=== PATIENT | male | born 1950 | race Caucasian/White ===

== ENCOUNTER 2017-05-08 10:49 | Emergency (ER) | payer MEDICARE, OTHER ==
[2017-05-08 11:01] VITALS: O2SAT 99
--- NOTE | 2017-05-08 11:14 | ERPHSYRPT ---
- History of Present Illness Time Seen by Provider: 05/08/17 11:09 Source: patient, family Physician History: 67-year-old male came to the emergency room with complaining of nosebleed for last 24 hours. Patient is on battery-operated heart pump and is on transplant list for heart. Patient is on warfarin and his last INR on Tuesday was 2.57 which is the range. 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 When patient seen in ER. Patient has a paper plug on his left nostril and when it was pulled out. Bleeding was stopped. No active bleeding was noted in the emergency room, while examining. Timing/Duration: gradual onset Prearrival Treatment: nasal packing Associated Symptoms: denies symptoms - Review of Systems Constitutional: No Symptoms Ears, Nose, & Throat: Epistaxis (left nostril) Cardiac: No Symptoms - Past Medical History Pertinent Past Medical History: Yes Neurological History: No Pertinent History ENT History: No Pertinent History Cardiac History: Congenital Heart Disease, Coronary Artery Disease, Hypertension , Other Musculoskeletal History: Other Other Medical History: patient has a Lvad - Past Surgical History Past Surgical History: Yes Cardiac: CABG, Cardiac Catheterization, Cardiac Stent, Other Musculoskeletal: Orthopedic Surgery Other Surgical History: knee and joint surgery - Social History Drug Use: none - Nursing Vital Signs Nursing Vital Signs: Initial Vital Signs Temperature 98.6 F 05/08/17 10:50 O2 Sat by Pulse Oximetry 99 05/08/17 10:50 Pain Scale Pain Intensity 0 - Physical Exam General Appearance: no apparent distress Eye Exam: bilateral eye: normal inspection Nasal Exam: dried blood Throat Exam: normal Neck Exam: normal inspection Cardiovascular/Respiratory Exam: chest non-tender SpO2: 99 Oxygen Delivery: Room Air - Course Nursing assessment & vital signs reviewed: Yes - Progress Progress: improved Counseled pt/family regarding: diagnosis, need for follow-up - Departure Time of Disposition: 11:14 Departure Disposition: Home Clinical Impression: Anterior epistaxis Condition: Stable Critical Care Time: No Referrals: DANNI BENDER MD [Primary Care Provider] - Instructions: Nosebleed Additional Instructions: Please follow the instructions given to you. Please take your medication as prescribed if given. If symptoms recur or get worse, come back to the emergency room if you cannot reach your primary care physician, or call your primary care physician for an appointment. Again if your symptoms get worse, come back to the emergency room. Thanks for visiting emergency room, and let us take care of you.
== END 2017-05-08 11:35 | disposition home or self-care (01) ==
LOC: ED 10:49
DX: R04.0 Epistaxis (principal); Z79.01 Long term (current) use of anticoagulants; Z95.811 Presence of heart assist device
CPT/HCPCS: 99283

== ENCOUNTER 2017-05-26 09:41 | Emergency (ER) | payer MEDICARE, OTHER ==
[2017-05-26] MEDS ORDERED: ARZOL Silver Nitrate Applicator TP ONE ×3 (09:50→10:25)
[2017-05-26] MEDS ORDERED: XYLOCAINE 4% TOPICAL SOLUTION 50 ML TOP ONE (09:50)
[2017-05-26] MEDS ORDERED: NEOSYNEPHRINE 0.5% NASAL SPRAY/DROPS NS ONE (09:50)
[2017-05-26] MEDS ORDERED: NEOSYNEPHRINE 0.5% NASAL SPRAY/DROPS ONE (09:52)
[2017-05-26] MEDS ORDERED: XYLOCAINE 4% TOPICAL SOLUTION 50 ML ONE ×2 (09:52→10:25)
[2017-05-26 10:10] LABS: BASOPHIL % 0.1 % (0.0-0.4); Eosinophil % 1.1 % (0.00-5.0); Granulocytes % 84.4 % (36.0-66.0); Mean Cell Volume 87.6 fl (78-100); Mean Platelet Volume 9.2 fl (6-9.5); Monocytes % 6.4 % (0.0-12.0); Platelet Count 252 K/mm3 (150-450); Red Blood Count 3.54 M/mm3 (4.1-5.6); Red Cell Distribution Width 16.2 % (11.5-14.0); White Blood Count 13.2 K/mm3 (4.0-10.5)
[2017-05-26 10:14] LABS: Mean Corpuscular Hemoglobin 27.6 pg (26-32)
[2017-05-26 10:17] LABS: INR 2.47 (0.8-3.0); PROTIME 27.7 SECONDS (8.83-12.87)
[2017-05-26 10:19] LABS: PTT 38.1 SECONDS (24.1-36.1)
[2017-05-26 10:20] LABS: ANION GAP 12.5 MEQ/L (5-15); BLOOD UREA NITROGEN 20 mg/dL (9-20); CHLORIDE 99 mEq/L (98-107); Carbon Dioxide 28.5 mEq/L (21-32); Glucose 153 MG/DL (70-110); Potassium 4.1 mEq/L (3.5-5.1); SODIUM 136 mEq/L (136-145)
--- NOTE | 2017-05-26 10:29 | ERPHSYRPT ---
- History of Present Illness Time Seen by Provider: 05/26/17 09:46 Source: patient Patient Subjective Stated Complaint: pt here for a nose bleed to left nostril, pt is on blood thinners, pt has hx of L vad and is no blood thinners Triage Nursing Assessment: pt alert, resp easy, walked in, skin w/d. pt has packing to left nostril Physician History: CC: nosebleed Hx: 67 y/o patient of [facility] cardiology and Dr Bender. He has LVAD and is on warfarin. 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 Today he has nosebleed in the left nose. Not better so came to ER. He stuffed tissue up the nose. No other bleeding. Severity: moderate ENT Location: nose (left) Allergies/Adverse Reactions: No Known Drug Allergies Allergy (Verified 05/26/17 09:52) Home Medications: Amiodarone HCl 200 mg [Cordarone 200 MG] 200 mg DAILY 05/26/17 [History] Atorvastatin Calcium 40 mg DAILY 05/26/17 [History] Calcium Carb, Citrate/Vit D3 [Calcium + D3 ER Tablet] 1 ea DAILY 05/26/17 [ History] Furosemide 40 mg [Lasix 40 MG] 40 mg DAILY 05/26/17 [History] Iron Ps Complex/B12/Folic Acid [Ferrex 150 Forte Capsule] 1 ea BID 05/26/17 [ History] Losartan Potassium 25 mg DAILY 05/26/17 [History] Mag Oxide/D3/Turmeric Rt Xt [Magnesium-Vit D3-Turmeric Cap] 1 ea BID 05/26/17 [ History] Metformin HCl [Metformin HCl ER] 500 mg BID 05/26/17 [History] Mexiletine HCl 200 mg BID 05/26/17 [History] Multivitamin/Iron/Folic Acid [Centrum Adults Tablet] 1 ea DAILY 05/26/17 [ History] Oxycodone HCl 10 mg TID 05/26/17 [History] Oxymorphone HCl [Oxymorphone HCl ER] 30 mg BID 05/26/17 [History] Potassium Chloride 20 Meq [Klor-Con 20 MEQ] 20 meq DAILY 05/26/17 [History] Sertraline HCl 50 mg [Zoloft 50 mg Tablet] 50 mg DAILY 05/26/17 [History] Warfarin Sodium [Coumadin] 6 mg DAILY 05/26/17 [History] Zolpidem Tartrate 10 mg DAILY 05/26/17 [History] Hx Influenza Vaccination/Date Given: No Hx Pneumococcal Vaccination/Date Given: Yes Immunizations Up to Date: Yes - Review of Systems Constitutional: No Fever, No Chills Ears, Nose, & Throat: Epistaxis Respiratory: No Dyspnea Cardiac: No Chest Pain Abdominal/Gastrointestinal: No Abdominal Pain, No Vomiting All Other Systems: Reviewed and Negative - Past Medical History Pertinent Past Medical History: Yes Neurological History: No Pertinent History ENT History: No Pertinent History Cardiac History: Congenital Heart Disease, Coronary Artery Disease, Hypertension , Other Musculoskeletal History: Other Other Medical History: patient has a Lvad - Past Surgical History Past Surgical History: Yes Cardiac: CABG, Cardiac Catheterization, Cardiac Stent, Other Musculoskeletal: Orthopedic Surgery Other Surgical History: knee and joint surgery - Social History Smoking Status: Former smoker Exposure to second hand smoke: No Drug Use: none Patient Lives Alone: No (drove self here) - Nursing Vital Signs Nursing Vital Signs: Initial Vital Signs Temperature 97 F 05/26/17 09:47 Pulse Rate 80 05/26/17 09:47 Respiratory Rate 18 05/26/17 09:47 Blood Pressure 110/69 05/26/17 09:47 O2 Sat by Pulse Oximetry 97 05/26/17 09:47 Pain Scale Pain Intensity 0 - Physical Exam General Appearance: alert, other (pleasant man) Eye Exam: bilateral eye: PERRL, EOMI Neck Exam: supple Abdominal Exam: soft Neurologic Exam: alert, oriented x 3, cooperative Skin Exam: warm, dry SpO2 Interpretation: normal SpO2: 97 Oxygen Delivery: Room Air Comments: left nostril has plug of tissue on arrival with dried blood. No bleeding right nostril. No blood in O-P. Procedures - Additional Procedures Progress: The nostril was cleared of blood and clots. Neosynephrine sprayed. Topical neosynephrine and 4% lidocaine applied on lambs wool cotton carrier. There was minimal fresh blood from way posterior medial barely visible. This area was cauterized with silver nitrate. No further bleeding at this point. No blood in O -P. - Course Nursing assessment & vital signs reviewed: Yes Ordered Tests: Active Orders 24 hr Category Date Time Status [facility] Stat Lab 05/26/17 10:01 Completed CBC W DIFF Stat Lab 05/26/17 10:01 Completed PROTIME WITH INR Stat Lab 05/26/17 10:01 Completed PTT Stat Lab 05/26/17 10:01 Completed Medication Summary Discontinued Medications Generic Name Dose Route Start Last Admin Trade Name Amandeepq PRN Reason Stop Dose Admin Lidocaine HCl 10 ml 05/26/17 09:50 05/26/17 10:18 Xylocaine 4% Topical Solution 50 Ml TOP 05/26/17 09:51 10 ml STAT ONE Administration Lidocaine HCl Confirm 05/26/17 09:52 Xylocaine 4% Topical Solution 50 Ml Administered 05/26/17 09:53 Dose 1 ml .ROUTE .STK-MED ONE Lidocaine HCl Confirm 05/26/17 10:25 Xylocaine 4% Topical Solution 50 Ml Administered 05/26/17 10:26 Dose 9 ml .ROUTE .STK-MED ONE Phenylephrine HCl 15 ml 05/26/17 09:50 05/26/17 10:19 Neosynephrine 0.5% Nasal [place]/Drops NS 05/26/17 09:51 15 ml STAT ONE Administration Phenylephrine HCl Confirm 05/26/17 09:52 Neosynephrine 0.5% Nasal [place]/Drops Administered 05/26/17 09:53 Dose 15 ml .ROUTE .STK-MED ONE Silver Nitrate 1 pkt 05/26/17 09:50 05/26/17 10:19 Arzol Silver Nitrate Applicator TP 05/26/17 09:51 1 pkt STAT ONE Administration Silver Nitrate Confirm 05/26/17 09:52 Arzol Silver Nitrate Applicator Administered 05/26/17 09:53 Dose 1 pkt TP .STK-MED ONE Silver Nitrate Confirm 05/26/17 10:25 Arzol Silver Nitrate Applicator Administered 05/26/17 10:26 Dose 1 pkt TP .STK-MED ONE Lab/Rad Data: Laboratory Result Diagrams 05/26/17 10:01 05/26/17 10:01 Laboratory Results 05/26/17 05/26/17 05/26/17 Range/Units 10:01 10:01 10:01 WBC 13.2 H (4.0-10.5) K/mm3 RBC 3.54 L (4.1-5.6) M/mm3 Hgb 9.8 L (12.5-18.0) gm/dl Hct 31.0 L (42-50) % MCV 87.6 (78-100) fl MCH 27.6 (26-32) pg MCHC 31.6 L (32-36) g/dl RDW 16.2 H (11.5-14.0) % Plt Count 252 (150-450) K/mm3 MPV 9.2 (6-9.5) fl Gran % 84.4 H (36.0-66.0) % Lymphocytes % 8.0 L (24.0-44.0) % Monocytes % 6.4 (0.0-12.0) % Eosinophils % 1.1 (0.00-5.0) % Basophils % 0.1 (0.0-0.4) % Basophils # 0.01 (0-0.4) INR 2.47 (0.8-3.0) APTT 38.1 H (24.1-36.1) SECONDS Sodium 136 (136-145) mEq/L Potassium 4.1 (3.5-5.1) mEq/L Chloride 99 (98-107) mEq/L Carbon Dioxide 28.5 (21-32) mEq/L Anion Gap 12.5 (5-15) MEQ/L BUN 20 (9-20) mg/dL Creatinine 1.20 (0.55-1.30) mg/dl Estimated GFR > 60 ML/MIN Glucose 153 H (70-110) MG/DL Calcium 9.2 (8.5-10.1) mg/dL - Progress Progress Note: 05/26/17 10:41 No further bleeding. Will release with polysporin ointment to start tomorrow. Called LVAD coordinator Sherry at [phone] and sent labs. Will release with instr. Counseled pt/family regarding: lab results, diagnosis, need for follow-up - Departure Time of Disposition: 10:42 Departure Disposition: Home Clinical Impression: Epistaxis, recurrent, Cardiomyopathy Condition: Stable Critical Care Time: No Referrals: DANNI BENDER MD [Primary Care Provider] - Instructions: Nosebleed Additional Instructions: Rx polysporin to smear inside nostrils at bedtime starting tomorrow. Hold pressure for any bleeding. Return for problems or concerns. LVAD coordinator will call you this afternoon. Prescriptions: Bacitracin/Polymyxin B Sulfate [Polysporin Ointment] 28.3 gm TP QHS #1 oint...g.
[2017-05-26 10:54] VITALS: BP 95/65; PULSE 70; O2SAT 98
[2017-05-27] MEDS ORDERED: ARZOL Silver Nitrate Applicator TP ONE (12:38)
== END 2017-05-26 10:53 | disposition home or self-care (01) ==
LOC: ED 09:41
PROC: 0W3Q7ZZ Control Bleeding in Respiratory Tract, Via Natural or Artificial Opening (ICD-10-PCS; principal; 2017-05-26)
DX: R04.0 Epistaxis (principal); I42.9 Cardiomyopathy, unspecified; Z79.01 Long term (current) use of anticoagulants; Z79.899 Other long term (current) drug therapy; I25.10 Atherosclerotic heart disease of native coronary artery without angina pectoris; I10 Essential (primary) hypertension; Z95.1 Presence of aortocoronary bypass graft; Z98.61 Coronary angioplasty status
CPT/HCPCS: 30901; 36415; 80048; 85025; 85610; 85730; 99283; 99284; A9270-GY

== ENCOUNTER 2018-07-07 17:29 | Emergency (ER) | payer MEDICARE, OTHER ==
[2018-07-07 18:06] VITALS: PULSE 73; O2SAT 97
--- NOTE | 2018-07-07 18:15 | ERPHSYRPT ---
- History of Present Illness Time Seen by Provider: 07/07/18 18:10 Source: patient, family Exam Limitations: no limitations Patient Subjective Stated Complaint: productive cough x 1 day. was put on ATB 2 weeks ago for pneumonia. producrtive cough with green sputum. low grade temp Triage Nursing Assessment: alert and oriented in no distress. no SOB at this time. congested cough. course lung sound on the left. states some head congestion with clear nasal drainage. low grade temp at dialysis before coming to ER @ 99.9. Physician History: pt sent after dialysis for check to rule out pneumonia and was treated for same 2 weeks ago ; now has cough Timing/Duration: today Cough Quality/Degree: dry cough Possible Cause: occasional episodes Modifying Factors: Improves With: nothing Associated Symptoms: fever, cough Allergies/Adverse Reactions: No Known Drug Allergies Allergy (Verified 07/07/18 18:06) Home Medications: Amiodarone HCl 200 mg [Cordarone 200 MG] 200 mg DAILY 05/26/17 [History] Atorvastatin Calcium 40 mg DAILY 05/26/17 [History] Calcium Carb, Citrate/Vit D3 [Calcium + D3 ER Tablet] 1 ea DAILY 05/26/17 [ History] Furosemide 40 mg [Lasix 40 MG] 40 mg DAILY 05/26/17 [History] Iron Ps Complex/B12/Folic Acid [Ferrex 150 Forte Capsule] 1 ea BID 05/26/17 [ History] Losartan Potassium 25 mg DAILY 05/26/17 [History] Mag Oxide/D3/Turmeric Rt Xt [Magnesium-Vit D3-Turmeric Cap] 1 ea BID 05/26/17 [ History] Metformin HCl [Metformin HCl ER] 500 mg BID 05/26/17 [History] Mexiletine HCl 200 mg BID 05/26/17 [History] Multivitamin/Iron/Folic Acid [Centrum Adults Tablet] 1 ea DAILY 05/26/17 [ History] Oxycodone HCl 10 mg TID 05/26/17 [History] Oxymorphone HCl [Oxymorphone HCl ER] 30 mg BID 05/26/17 [History] Potassium Chloride 20 Meq [Klor-Con 20 MEQ] 20 meq DAILY 05/26/17 [History] Sertraline HCl 50 mg [Zoloft 50 mg Tablet] 50 mg DAILY 05/26/17 [History] Warfarin Sodium [Coumadin] 6 mg DAILY 05/26/17 [History] Zolpidem Tartrate 10 mg DAILY 05/26/17 [History] Hx Influenza Vaccination/Date Given: No Hx Pneumococcal Vaccination/Date Given: Yes Immunizations Up to Date: Yes - Review of Systems Constitutional: Fever, No Chills Eyes: No Symptoms Ears, Nose, & Throat: No Symptoms Respiratory: Cough, No Dyspnea Cardiac: No Chest Pain, No Edema, No Syncope Abdominal/Gastrointestinal: No Abdominal Pain, No Nausea, No Vomiting, No Diarrhea Genitourinary Symptoms: No Dysuria Musculoskeletal: No Back Pain, No Neck Pain Skin: No Rash Neurological: No Dizziness, No Focal Weakness, No Sensory Changes Psychological: No Symptoms Endocrine: No Symptoms Hematologic/Lymphatic: No Symptoms Immunological/Allergic: No Symptoms All Other Systems: Reviewed and Negative - Past Medical History Pertinent Past Medical History: Yes Neurological History: No Pertinent History ENT History: No Pertinent History Cardiac History: Congenital Heart Disease, Coronary Artery Disease, Hypertension , Other Musculoskeletal History: Other Other Medical History: patient has a Lvad - Past Surgical History Past Surgical History: Yes Cardiac: CABG, Cardiac Catheterization, Cardiac Stent, Other Musculoskeletal: Orthopedic Surgery Other Surgical History: knee and joint surgery - Social History Smoking Status: Former smoker Exposure to second hand smoke: No Drug Use: none Patient Lives Alone: No - Nursing Vital Signs Nursing Vital Signs: Initial Vital Signs Temperature 98.8 F 07/07/18 17:54 Pulse Rate 73 07/07/18 17:54 Respiratory Rate 18 07/07/18 17:54 O2 Sat by Pulse Oximetry 97 07/07/18 17:54 Pain Scale Pain Intensity 0 - Physical Exam General Appearance: no apparent distress, alert Eye Exam: PERRL/EOMI, eyes nml inspection Ears, Nose, Throat Exam: normal ENT inspection, TMs normal, pharynx normal, moist mucous membranes Neck Exam: normal inspection, non-tender, supple, full range of motion Respiratory Exam: normal breath sounds, rhonchi, No respiratory distress Cardiovascular Exam: regular rate/rhythm, normal heart sounds Gastrointestinal/Abdomen Exam: soft, No tenderness Back Exam: normal inspection, No CVA tenderness, No vertebral tenderness Extremity Exam: normal inspection, normal range of motion Neurologic Exam: alert, oriented x 3, cooperative, normal mood/affect, sensation nml, No motor deficits Skin Exam: normal color, warm, dry, No rash Lymphatic Exam: No adenopathy SpO2: 97 Oxygen Delivery: Room Air - Course Nursing assessment & vital signs reviewed: Yes - Radiology Exams Chest X-ray Interpretation: Reviewed by me, Other (right infiltrate similar to previous) Ordered Tests: Active Orders 24 hr Category Date Time Status Pulse Oximetry (ED) STAT Care 07/07/18 17:47 Active CHEST 2 VIEWS (PA AND LAT) Stat Exams 07/07/18 17:45 Taken CBC W DIFF Stat Lab 07/07/18 18:15 Completed Lab/Rad Data: Laboratory Result Diagrams 07/07/18 18:15 Laboratory Results 07/07/18 Range/Units 18:15 WBC 7.4 (4.0-10.5) K/mm3 RBC 2.39 L (4.1-5.6) M/mm3 Hgb 7.3 L (12.5-18.0) gm/dl Hct 23.6 L (42-50) % MCV 98.7 (78-100) fl MCH 30.5 (26-32) pg MCHC 30.9 L (32-36) g/dl RDW 18.3 H (11.5-14.0) % Plt Count 178 (150-450) K/mm3 MPV 9.4 (6-9.5) fl Gran % 72.5 H (36.0-66.0) % Eos # (Auto) 0.21 (0-0.5) Absolute Lymphs (auto) 1.09 (1.0-4.6) Absolute Monos (auto) 0.69 (0.0-1.3) Lymphocytes % 14.8 L (24.0-44.0) % Monocytes % 9.4 (0.0-12.0) % Eosinophils % 2.9 (0.00-5.0) % Basophils % 0.4 (0.0-0.4) % Absolute Granulocytes 5.33 (1.4-6.9) Basophils # 0.03 (0-0.4) - Progress Progress: improved, re-examined Air Movement: good Progress Note: 07/07/18 19:00 discussed with VAD nurse Dorys zhao of AB, and pt and no known contraindication and all agree good to start ab and to call her again if fever recurs; 07/07/18 19:15 pt no longer on warfaran . Blood Culture(s) Obtained: No Antibiotics given: Yes Discussed with Dr.: Other (VAD RN Dorys) Will see patient in: office Counseled pt/family regarding: lab results, diagnosis, need for follow-up, rad results - Departure Time of Disposition: 19:08 Departure Disposition: Home Clinical Impression: exacerbation bronchitis, Pneumonitis Condition: Good Critical Care Time: No Referrals: DANNI BENDER MD [Primary Care Provider] - Instructions: Pneumonia in Adults Additional Instructions: followup with your dr to confirm resolution of pneumonia- return meantime and/ or call VAD nurse if any further fever or any symptoms of concern meantime; Prescriptions: Azithromycin 250 mg [Zithromax 250 MG TABLET] 250 mg PO ZPACK #6 tablet
[2018-07-07 18:23] LABS: BASOPHIL % 0.4 % (0.0-0.4); Basophil (Absolute #) 0.03 (0-0.4); Eosinophil % 2.9 % (0.00-5.0); Eosinophil (Absolute #) 0.21 (0-0.5); Granulocyte Absolute (ANC) 5.33 (1.4-6.9); Granulocytes % 72.5 % (36.0-66.0); Hematocrit 23.6 % (42-50); Hemoglobin 7.3 gm/dl (12.5-18.0); Lymphocyte (Absolute #) 1.09 (1.0-4.6); Lymphocytes % 14.8 % (24.0-44.0); Mean Cell Volume 98.7 fl (78-100); Mean Corpuscular Hemoglobin 30.5 pg (26-32); Mean Corpuscular Hgb Concent. 30.9 g/dl (32-36); Mean Platelet Volume 9.4 fl (6-9.5); Monocyte (Absolute #) 0.69 (0.0-1.3); Monocytes % 9.4 % (0.0-12.0); Platelet Count 178 K/mm3 (150-450); Red Blood Count 2.39 M/mm3 (4.1-5.6); Red Cell Distribution Width 18.3 % (11.5-14.0); White Blood Count 7.4 K/mm3 (4.0-10.5)
[2018-07-07] MEDS ORDERED: Vibramycin 100 MG PO ONE (19:38)
[2018-07-07] MEDS ORDERED: Vibramycin 100 MG ONE (19:42)
--- NOTE | 2018-07-07 20:44 | XRAY ---
Indication: Pneumonia. Comparison: June 21, 2018. PA/lateral chest demonstrates clear lungs again with left ventricle assist device, right double-lumen dialysis catheter, and CABG surgery. Heart is not enlarged. Vascularity normal. No new/acute findings. Impression: Nonacute chest with chronic features.
== END 2018-07-07 19:51 | disposition home or self-care (01) ==
LOC: ED 17:29
DX: J18.9 Pneumonia, unspecified organism (principal); J40 Bronchitis, not specified as acute or chronic; Z79.01 Long term (current) use of anticoagulants; Z79.899 Other long term (current) drug therapy
CPT/HCPCS: 36415; 71046; 85025; 99283; A9270-GY

== ENCOUNTER 2019-08-05 11:22 | Emergency (ER) | payer MEDICARE, OTHER ==
--- NOTE | 2019-08-05 11:44 | ERPHSYRPT ---
- History of Present Illness Time Seen by Provider: 08/05/19 11:44 Source: patient Exam Limitations: no limitations Patient Subjective Stated Complaint: Pt states "I was not feeling well last night. I vomited and had a slight fever. I stopped vomiting at 1 am and I have not had a fever since I took tylenol last night." Triage Nursing Assessment: Pt presented to the ed alert and oriented X 3, skin pwd Pt ambulates with an uprigth steady gait, able to speak in clear full sentencs Pt in no apparent respiratory distress. Physician History: 69 yo with cardiac/renal transplant patient presented with sudden onset chills last night around 7pm followed by low grade fever and vomiting. fever broke with tylenol. had almost 3-4 episodes of nonbilious/nonprojectile vomiting with no hematemesis. no fever or vomiting since 3;00am . denies any abdominal pain. Does have occasional cough. patient called and was advised to come tpo ER here. Timing/Duration: day(s) (1) Severity: moderate Modifying Factors: Improves With: acetaminophen Associated Symptoms: nausea, vomiting, chills, fever Allergies/Adverse Reactions: No Known Drug Allergies Allergy (Verified 07/07/18 18:06) Home Medications: Multivitamin/Iron/Folic Acid [Centrum Adults Tablet] 1 ea PO DAILY 05/26/17 [ History] Zolpidem Tartrate 10 mg PO DAILY 05/26/17 [History] Calcium Citrate/Vitamin D3 [Calcium Citrate - Vit D Caplet] 1 each PO BID [History] Magnesium Oxide 400 mg [Mag-Ox 400] 1 tab PO BID 07/13/18 [History] Melatonin/Pyridoxine HCl (B6) [Melatonin 3 mg Tablet] 3 tab PO HS 07/13/18 [ History] Oxymorphone HCl [Oxymorphone HCl ER] 5 mg PO Q4-6HPRN PRN 07/13/18 [History] Oxymorphone HCl [Oxymorphone HCl ER] 20 mg PO Q12H 07/13/18 [History] PANTOPRAZOLE 40 mg Tablet [Protonix 40MG Tablet] 1 tab PO BID 07/13/18 [ History] Sennosides/Docusate Sodium [Docusate Sodium-Sennosides Tab] 1 each PO BID [History] Vitamin B Complex/Folic Acid [Super B Maxi Complex Caplet] 0.4 mg PO DAILY 07/13 [History] Famotidine 20 mg [Pepcid 20 MG] 20 mg PO HS 08/05/19 [History] Mycophenolate Mofetil [Cellcept] 500 mg PO BID 08/05/19 [History] Topiramate 25 mg PO DAILY 08/05/19 [History] Vortioxetine Hydrobromide [Trintellix] 10 mg PO HS 08/05/19 [History] Hx Tetanus, Diphtheria Vaccination/Date Given: Yes Hx Influenza Vaccination/Date Given: No Hx Pneumococcal Vaccination/Date Given: No Immunizations Up to Date: Yes - Review of Systems Constitutional: Fever, Chills, Fatigue Eyes: No Symptoms Ears, Nose, & Throat: No Symptoms Respiratory: Cough Cardiac: Other (chest soreness) Abdominal/Gastrointestinal: Nausea, Vomiting Genitourinary Symptoms: No Symptoms Musculoskeletal: Myalgias Skin: No Symptoms Neurological: No Symptoms Psychological: No Symptoms Endocrine: No Symptoms Hematologic/Lymphatic: No Symptoms - Past Medical History Pertinent Past Medical History: Yes Neurological History: No Pertinent History ENT History: No Pertinent History Cardiac History: Coronary Artery Disease, Deep Vein Thrombosis, High Cholesterol , Hypertension, Myocardial Infarction (GA), Other Respiratory History: Pneumonia, Other Endocrine Medical History: No Pertinent History Musculoskeletal History: Arthritis, Osteoarthritis, Other GI Medical History: GI Bleed History: Dialysis, Renal Disease, Other Psycho-Social History: Depression Male Reproductive Disorders: No Pertinent History Other Medical History: VAD for left ventricle. 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 Renal failure. On transplant list for heart and kidney. Metal in left foot and left knee up to hip.Sternal wires. Cardiac stents. Pt unsure of how many stents are in place. Hx of DVT that resulted in PE - Past Surgical History Past Surgical History: Yes Neuro Surgical History: No Pertinent History Cardiac: Angioplasty, CABG, Cardiac Catheterization, Cardiac Stent, Other Respiratory: No Pertinent History Gastrointestinal: Other Genitourinary: Other Musculoskeletal: Other Male Surgical History: No Pertinent History Other Surgical History: Left ventricle pump. VAD. 10" of small intestine removed due to bleed. On kidney and heart transplant list. Right knee replacement. heart transplant on october 13 2018. kidney transplant october 14 2018 - Social History Smoking Status: Former smoker Exposure to second hand smoke: No Drug Use: none Patient Lives Alone: No - Nursing Vital Signs Nursing Vital Signs: Initial Vital Signs Temperature 97.9 F 08/05/19 11:27 Pulse Rate 104 H 08/05/19 11:27 Respiratory Rate 18 08/05/19 11:27 Blood Pressure 124/77 08/05/19 11:27 O2 Sat by Pulse Oximetry 98 08/05/19 11:27 Pain Scale Pain Intensity 0 - Physical Exam General Appearance: no apparent distress Eye Exam: eyes nml inspection, photophobia Ears, Nose, Throat Exam: normal ENT inspection, pharynx normal Neck Exam: normal inspection, non-tender, supple, full range of motion Respiratory Exam: normal breath sounds, lungs clear, No accessory muscle use Cardiovascular Exam: regular rate/rhythm, normal heart sounds Gastrointestinal/Abdomen Exam: soft, normal bowel sounds, No tenderness, No distention Back Exam: normal inspection Extremity Exam: normal inspection, normal range of motion Neurologic Exam: alert, oriented x 3, cooperative Skin Exam: normal color SpO2 Interpretation: normal SpO2: 98 O2 Delivery: Room Air - Course Nursing assessment & vital signs reviewed: Yes Ordered Tests: Active Orders 24 hr Category Date Time Status CHEST WITHOUT CONTRAST [CT] Stat Exams 08/05/19 12:44 Taken BLOOD CULTURE Stat Lab 08/05/19 12:38 Received CBC W DIFF Stat Lab 08/05/19 12:35 Completed CMP Stat Lab 08/05/19 12:35 Completed Lactic Acid Stat Lab 08/05/19 12:11 Completed Manual Differential NC Stat Lab 08/05/19 12:35 Completed UA W/RFX UR CULTURE Stat Lab 08/05/19 13:35 Completed Medication Summary Generic Name Dose Route Start Last Admin Trade Name Freq PRN Reason Stop Dose Admin Oseltamivir Phosphate 30 mg 08/06/19 10:00 08/05/19 13:01 Oseltamivir Phosphate 30 Mg Cap PO 09/05/19 09:59 30 mg DAILY MANJEET Administration Discontinued Medications Generic Name Dose Route Start Last Admin Trade Name Freq PRN Reason Stop Dose Admin Meropenem 500 mg/ Sodium 100 mls @ 200 mls/hr 08/05/19 12:07 08/05/19 13:02 Chloride IV 08/05/19 12:36 200 mls/hr STAT ONE Administration Vancomycin HCl 250 mls @ 167 mls/hr 08/05/19 12:07 08/05/19 13:02 Vancomycin 1gm/ Ns 250ml IV 08/05/19 13:36 167 mls/hr STAT ONE Administration Sodium Chloride Confirm 08/05/19 12:51 Sodium Chloride 0.9% 100 Ml Ivpb Administered 08/05/19 12:52 Dose 100 mls @ ud IV .STK-MED ONE Vancomycin HCl Confirm 08/05/19 12:51 Vancomycin 1gm/ Ns 250ml Administered 08/05/19 12:52 Dose 250 mls @ ud IV .STK-MED ONE Meropenem Confirm 08/05/19 12:51 Merrem 500mg Administered 08/05/19 12:52 Dose 500 mg IV .STK-MED ONE Lab/Rad Data: Laboratory Result Diagrams 08/05/19 12:35 08/05/19 12:35 Laboratory Results 08/05/19 08/05/19 08/05/19 Range/Units 13:35 12:40 12:35 WBC (4.0-10.5) K/mm3 RBC (4.1-5.6) M/mm3 Hgb (12.5-18.0) gm/dl Hct (42-50) % MCV (78-100) fl MCH (26-32) pg MCHC (32-36) g/dl RDW (11.5-14.0) % Plt Count (150-450) K/mm3 MPV (6-9.5) fl Sodium 135 L (137-145) mmol/L Potassium 4.2 (3.5-5.1) mmol/L Chloride 104 (98-107) mmol/L Carbon Dioxide 25 (22-30) mmol/L Anion Gap 10.0 (5-15) MEQ/L BUN 18 (9-20) mg/dL Creatinine 0.99 (0.66-1.25) mg/dL Estimated GFR > 60.0 ML/MIN Glucose 182 H (74-106) mg/dL Lactic Acid (0.4-2.0) Calcium 9.1 (8.4-10.2) mg/dL Total Bilirubin 0.50 (0.2-1.3) mg/dL AST 33 (17-59) U/L ALT 13 (0-50) U/L Alkaline Phosphatase 98 (38-126) U/L Serum Total Protein 6.8 (6.3-8.2) g/dL Albumin 3.7 (3.5-5.0) g/dL Urine Color YELLOW (YELLOW) Urine Appearance CLEAR (CLEAR) Urine pH 7.0 (5-6) Ur Specific Harris 1.013 (1.005-1.025) Urine Protein NEGATIVE (Negative) Urine Ketones NEGATIVE (NEGATIVE) Urine Blood NEGATIVE (0-5) Mario/ul Urine Nitrite NEGATIVE (NEGATIVE) Urine Bilirubin NEGATIVE (NEGATIVE) Urine Urobilinogen NEGATIVE (0-1) mg/dL Ur Leukocyte Esterase NEGATIVE (NEGATIVE) Urine WBC (Auto) NONE (0-5) /HPF Urine RBC (Auto) NONE (0-2) /HPF U Epithel Cells (Auto) NONE (FEW) /HPF Urine Bacteria (Auto) NONE (NEGATIVE) /HPF Urine Culture Reflexed NO (NO) Urine Glucose NEGATIVE (NEGATIVE) mg/dL Influenza Type A Ag NEGATIVE (NEGATIVE) Influenza Type B Ag NEGATIVE (NEGATIVE) RSV (PCR) NEGATIVE (Negative) 08/05/19 08/05/19 Range/Units 12:35 12:11 WBC 14.2 H (4.0-10.5) K/mm3 RBC 4.07 L (4.1-5.6) M/mm3 Hgb 13.4 (12.5-18.0) gm/dl Hct 40.1 L (42-50) % MCV 98.5 (78-100) fl MCH 32.9 H (26-32) pg MCHC 33.4 (32-36) g/dl RDW 12.4 (11.5-14.0) % Plt Count 172 (150-450) K/mm3 MPV 9.6 H (6-9.5) fl Sodium (137-145) mmol/L Potassium (3.5-5.1) mmol/L Chloride (98-107) mmol/L Carbon Dioxide (22-30) mmol/L Anion Gap (5-15) MEQ/L BUN (9-20) mg/dL Creatinine (0.66-1.25) mg/dL Estimated GFR ML/MIN Glucose (74-106) mg/dL Lactic Acid 1.3 (0.4-2.0) Calcium (8.4-10.2) mg/dL Total Bilirubin (0.2-1.3) mg/dL AST (17-59) U/L ALT (0-50) U/L Alkaline Phosphatase (38-126) U/L Serum Total Protein (6.3-8.2) g/dL Albumin (3.5-5.0) g/dL Urine Color (YELLOW) Urine Appearance (CLEAR) Urine pH (5-6) Ur Specific Harris (1.005-1.025) Urine Protein (Negative) Urine Ketones (NEGATIVE) Urine Blood (0-5) Mario/ul Urine Nitrite (NEGATIVE) Urine Bilirubin (NEGATIVE) Urine Urobilinogen (0-1) mg/dL Ur Leukocyte Esterase (NEGATIVE) Urine WBC (Auto) (0-5) /HPF Urine RBC (Auto) (0-2) /HPF U Epithel Cells (Auto) (FEW) /HPF Urine Bacteria (Auto) (NEGATIVE) /HPF Urine Culture Reflexed (NO) Urine Glucose (NEGATIVE) mg/dL Influenza Type A Ag (NEGATIVE) Influenza Type B Ag (NEGATIVE) RSV (PCR) (Negative) - Progress Progress: re-examined Progress Note: 08/05/19 12:15 patient is not having any symptoms at present but some fatigue. d/w at [facility] cardiac transplant team , recommended septic workup and abx , willplan on transfer for further evaluation. 08/05/19 14:01 has bilateral pneumonia , vancomycin and meropenum is given , patient is accepted by . plan d/w family and they are ok with it. 08/05/19 14:07 Counseled pt/family regarding: lab results, diagnosis, rad results - Departure Departure Disposition: Transfer Clinical Impression: Pneumonia Qualifiers: Pneumonia type: due to unspecified organism Laterality: bilateral Lung location : unspecified part of lung Qualified Code(s): J18.9 - Pneumonia, unspecified organism Condition: Stable Critical Care Time: No Referrals: DANNI BENDER MD [Primary Care Provider] -
[2019-08-05] MEDS ORDERED: MERREM 500MG 500 MG in Sodium Chloride 100ML MINI-BAG PLUS 100 ML IV ONE (12:07)
[2019-08-05] MEDS ORDERED: Vancomycin 1GM/ Ns 250ML*** 250 ML IV ONE ×2 (12:07→12:51)
[2019-08-05 12:44] LABS: Hematocrit 40.1 % (42-50); Hemoglobin 13.4 gm/dl (12.5-18.0); Mean Cell Volume 98.5 fl (78-100); Mean Corpuscular Hemoglobin 32.9 pg (26-32); Mean Corpuscular Hgb Concent. 33.4 g/dl (32-36); Mean Platelet Volume 9.6 fl (6-9.5); Platelet Count 172 K/mm3 (150-450); Red Blood Count 4.07 M/mm3 (4.1-5.6); Red Cell Distribution Width 12.4 % (11.5-14.0); White Blood Count 14.2 K/mm3 (4.0-10.5)
[2019-08-05] MEDS ORDERED: MERREM 500MG IV ONE (12:51)
[2019-08-05] MEDS ORDERED: Sodium Chloride 0.9% 100 ML IVPB 100 ML IV ONE (12:51)
[2019-08-05 13:00] LABS: ALBUMIN 3.7 g/dL (3.5-5.0); ALKALINE PHOSPHATASE 98 U/L (38-126); BLOOD UREA NITROGEN 18 mg/dL (9-20); CHLORIDE 104 mmol/L (98-107); Calcium 9.1 mg/dL (8.4-10.2); Carbon Dioxide 25 mmol/L (22-30); Creatinine 1 0.99 mg/dL (0.66-1.25); Glucose 182 mg/dL (74-106); Potassium 4.2 mmol/L (3.5-5.1); SGOT/AST 33 U/L (17-59); SGPT/ALT 13 U/L (0-50); SODIUM 135 mmol/L (137-145); Total Protein 6.8 g/dL (6.3-8.2)
[2019-08-05 13:33] LABS: INFLUENZA A NEGATIVE (NEGATIVE); INFLUENZA B NEGATIVE (NEGATIVE); RESPIRATORY SYNCTIAL VIRUS NEGATIVE (Negative)
[2019-08-05 13:35] LABS: Appearance CLEAR (CLEAR); Bilirubin NEGATIVE (NEGATIVE); Blood NEGATIVE Ery/ul (0-5); Glucose NEGATIVE (NEGATIVE); Ketones NEGATIVE (NEGATIVE); Leukocyte Esterase NEGATIVE (NEGATIVE); Nitrite NEGATIVE (NEGATIVE); Protein,Urine Dip NEGATIVE (Negative); Specific Gravity 1.013 (1.005-1.025); Urobilinogen NEGATIVE mg/dL (0-1)
[2019-08-05 14:55] VITALS: BP 94/61
[2019-08-05 14:56] VITALS: PULSE 80; O2SAT 97
[2019-08-05 17:59] LABS: BAND 36 % (0.0-2.0); Eosinophil 2 % (0.00-3.0); Lymphocytes 4 % (24-44); Monocyte 3 % (0.0-12.0); Neutrophils 55 % (36.-66.); Total Cells Counted 100
[2019-08-05 18:00] LABS: Platelet Estimate NORMAL (NORMAL); Toxic Granulation 1+
--- NOTE | 2019-08-05 19:04 | XRAY ---
Indication: Cough and short of breath. Multiple contiguous axial images obtained through the chest without contrast as ordered. Comparison: February 16, 2019. Lungs demonstrates bilateral mid to lower lung interstitial alveolar opacities, more than before. No consolidation or large effusion. Stable left lower lobe calcified granuloma. Upper lungs clear. Heart is not enlarged again with CABG surgery. Aorta remains arteriosclerotic without aneurysmal dilatation. Stable left perihilar calcified nodes. No pathologic mediastinal lymphadenopathy. Bony thorax intact again with mild degenerative changes throughout the spine and sternotomy wires. Limited upper abdomen again demonstrates tiny gallstone and calcified splenic granulomas. Impression: 1. Again bilateral mid to lower lung interstitial opacities favoring pneumonia. No consolidation/large effusion. 2. Stable tiny gallstone and evidence for old granulomatous disease. Comment: Preliminary interpretation was made by [facility]. No critical discrepancy. CTDI 6.71
[2019-08-06] MEDS ORDERED: OSELTAMIVIR PHOSPHATE 30 MG CAP PO SCH (10:00)
== END 2019-08-05 16:15 | disposition short-term general hospital (02) ==
LOC: ED 11:22
DX: J18.9 Pneumonia, unspecified organism (principal); Z79.899 Other long term (current) drug therapy; R11.2 Nausea with vomiting, unspecified
CPT/HCPCS: 36000; 36415; 71250; 80053; 81001; 83605; 85025; 87040; 87631; 96365; 96366; 96368; 99285; J3370; A9270-GY